=== PATIENT | male | born 1940 | race Caucasian/White ===

== ENCOUNTER 2018-03-05 18:10 | Inpatient (IN) | payer OTHER ==
[~2018-03-05] VITALS: Ht 177.8 cm; Wt 105.0 kg
[2018-03-05] MEDS ORDERED: KLOR-CON M2020 MEQ PO (18:14)
[2018-03-05] MEDS ORDERED: HYDRALAZINE HCL25 MG PO (18:15)
[2018-03-05] MEDS ORDERED: MIN2.5 PO (18:15)
[2018-03-05] MEDS ORDERED: METOPROLOL SUCC50 M2 PO (18:15)
[2018-03-05] MEDS ORDERED: FUROSEMIDE40 MG PO (18:15)
[2018-03-05] MEDS ORDERED: ZOLOFT100 MG PO (18:16)
[2018-03-05] MEDS ORDERED: APAP/HYDROCODON1 T13 PO (18:16)
[2018-03-05] MEDS ORDERED: COUMADIN2.5 MG PO (18:16)
[2018-03-05] MEDS ORDERED: METOLAZONE5 M1 PO (18:17)
[2018-03-05] MEDS ORDERED: GABAPENTIN600 M1 PO (18:17)
[2018-03-05] MEDS ORDERED: PREDNISONE20 MG PO (18:17)
[2018-03-05] MEDS ORDERED: ROPINIROLE2 M1 PO (18:17)
[2018-03-05] MEDS ORDERED: NATEGLINIDE120 M1 PO (18:18)
[2018-03-05] MEDS ORDERED: GLIMEPIRIDE2 M1 PO (18:18)
[2018-03-05] MEDS ORDERED: ALLOPURINOL100 MG PO (18:18)
[2018-03-05 19:42] LABS: ALBUMIN 3.9 g/dL (3.4-5.0); ALKALINE PHOSPHATASE 74 U/L (46-116); ALT/SGPT 56 U/L (16-63); AST/SGOT 56 U/L (15-37); BILIRUBIN TOTAL 0.89 mg/dL (0.20-1.00); CALCIUM 9.1 mg/dL (8.5-10.1); CARBON DIOXIDE 26.3 mmol/L (21-32); CHLORIDE SERUM 103 mmol/L (98-107); CREATININE SERUM 2.5 mg/dL (0.7-1.3); GLUCOSE SERUM 110 mg/dL (74-106); POTASSIUM SERUM 3.9 mmol/L (3.5-5.1); SODIUM SERUM 140 mmol/L (136-145); TOTAL PROTEIN, SERUM 7.2 g/dL (6.4-8.2)
[2018-03-05 19:44] LABS: PLATELET COUNT 229 x10^3mcL (130-400)
[2018-03-05 19:49] LABS: BASOPHIL % 0 % (0-2); RED CELL DISTRIBUTION WIDTH 21.4 % (11.5-14.5)
[2018-03-05 20:04] LABS: ovalocyte/elliptocyte 1+; rbc morphology (normal/abnorm) ABNORMAL (NORMAL)
[2018-03-05 22:29] LABS: CHOLESTEROL/HDL RATIO 2.6; MAGNESIUM 2.6 mg/dL (1.8-2.4); PHOSPHOROUS 3.7 mg/dL (2.5-4.9)
[2018-03-05 22:31] LABS: T3 TOTAL 0.48 ng/mL
[2018-03-05 22:35] LABS: FREE T4 0.8 ng/dL (0.76-1.46); FREE THYROXINE INDEX 1.7 ug/dL (1.4-4.5); T4(THYROXINE) 4.7 ug/dL (4.7-13.3)
[2018-03-05 23:20] VITALS: BP 139/72
[2018-03-05 23:47] LABS: UA SPECIFIC GRAVITY <=1.005 (1.005-1.035); microscopic required? YES; urine erythrocyte NEGATIVE (NEGATIVE)
[2018-03-06 00:05] LABS: AMPHETAMINE QUAL UR NONE DETECTED (NEG <=1000)
[2018-03-06 06:00] VITALS: BP 109/61
[2018-03-06 07:06] LABS: PLATELET COUNT 181 x10^3mcL (130-400); RED CELL DISTRIBUTION WIDTH 20.9 % (11.5-14.5)
[2018-03-06 07:07] LABS: rbc morphology (normal/abnorm) ABNORMAL (NORMAL)
[2018-03-06 08:16] LABS: CALCIUM 8.7 mg/dL (8.5-10.1); CARBON DIOXIDE 27.1 mmol/L (21-32); CHLORIDE SERUM 105 mmol/L (98-107); CREATININE SERUM 2.8 mg/dL (0.7-1.3); MAGNESIUM 2.5 mg/dL (1.8-2.4); POTASSIUM SERUM 3.9 mmol/L (3.5-5.1); SODIUM SERUM 142 mmol/L (136-145)
[2018-03-06 08:53] LABS: GLUCOSE SERUM 43 mg/dL (74-106)
[2018-03-06 09:27] VITALS: BP 97/65
[2018-03-06 10:37] LABS: BAND NEUTROPHIL 38 % (0-10); BASOPHIL 0 % (0-2); MONOCYTE 6 % (0-7); SEGMENTED NEUTROPHILS 53 % (37-75)
[2018-03-06 10:38] LABS: ovalocyte/elliptocyte 1+
[2018-03-06 12:52] VITALS: BP 99/57
[2018-03-06 17:23] VITALS: BP 96/66
[2018-03-06 21:08] VITALS: BP 125/68
[2018-03-07] VITALS (7 sets, daily range): BP systolic 127–146; BP diastolic 56–90
[2018-03-07 06:22] LABS: PLATELET COUNT 137 x10^3mcL (130-400)
[2018-03-07 06:53] LABS: CALCIUM 8.6 mg/dL (8.5-10.1); CARBON DIOXIDE 25.6 mmol/L (21-32); CHLORIDE SERUM 103 mmol/L (98-107); CREATININE SERUM 2.7 mg/dL (0.7-1.3); GLUCOSE SERUM 143 mg/dL (74-106); MAGNESIUM 2.5 mg/dL (1.8-2.4); PHOSPHOROUS 5.4 mg/dL (2.5-4.9); POTASSIUM SERUM 4.1 mmol/L (3.5-5.1); SODIUM SERUM 141 mmol/L (136-145)
[2018-03-07 07:00] LABS: BASOPHIL % 0 % (0-2)
[2018-03-07 07:03] LABS: ovalocyte/elliptocyte 1+; rbc morphology (normal/abnorm) ABNORMAL (NORMAL)
[2018-03-08 06:44] VITALS: BP 137/84
[2018-03-08 08:12] LABS: PLATELET COUNT 176 x10^3mcL (130-400)
[2018-03-08 08:18] LABS: BASOPHIL % 0 % (0-2); RED CELL DISTRIBUTION WIDTH 21.4 % (11.5-14.5)
[2018-03-08 08:19] LABS: rbc morphology (normal/abnorm) ABNORMAL (NORMAL)
[2018-03-08 08:23] LABS: CARBON DIOXIDE 27.7 mmol/L (21-32); CHLORIDE SERUM 103 mmol/L (98-107); CREATININE SERUM 2.4 mg/dL (0.7-1.3); GLUCOSE SERUM 75 mg/dL (74-106); MAGNESIUM 2.7 mg/dL (1.8-2.4); PHOSPHOROUS 5.7 mg/dL (2.5-4.9); POTASSIUM SERUM 4.1 mmol/L (3.5-5.1); SODIUM SERUM 140 mmol/L (136-145)
[2018-03-08 09:36] VITALS: BP 120/78
[2018-03-08 13:00] VITALS: BP 132/68
[2018-03-08 16:58] VITALS: BP 136/85
[2018-03-08 21:18] VITALS: BP 139/84
[2018-03-09 06:02] VITALS: BP 118/67
[2018-03-09 06:33] LABS: PLATELET COUNT 184 x10^3mcL (130-400)
[2018-03-09 06:50] LABS: CALCIUM 8.7 mg/dL (8.5-10.1); CHLORIDE SERUM 105 mmol/L (98-107); CREATININE SERUM 2.2 mg/dL (0.7-1.3); GLUCOSE SERUM 84 mg/dL (74-106); MAGNESIUM 2.9 mg/dL (1.8-2.4); PHOSPHOROUS 5.3 mg/dL (2.5-4.9); POTASSIUM SERUM 4.3 mmol/L (3.5-5.1); SODIUM SERUM 141 mmol/L (136-145)
[2018-03-09 06:55] LABS: BASOPHIL % 0 % (0-2); RED CELL DISTRIBUTION WIDTH 21.9 % (11.5-14.5)
[2018-03-09 07:23] VITALS: Ht 177.8 cm; Wt 105.0 kg
[2018-03-09 07:35] VITALS: BP 118/67
[2018-03-09 09:18] VITALS: BP 132/74
[2018-03-09 12:28] VITALS: BP 127/80
[2018-03-09 18:22] VITALS: BP 133/83
[2018-03-09 21:09] VITALS: BP 129/74
[2018-03-10 05:30] VITALS: BP 121/73
[2018-03-10 06:16] LABS: PLATELET COUNT 192 x10^3mcL (130-400)
[2018-03-10 06:26] LABS: CALCIUM 8.7 mg/dL (8.5-10.1); CARBON DIOXIDE 24.5 mmol/L (21-32); CHLORIDE SERUM 103 mmol/L (98-107); CREATININE SERUM 2.1 mg/dL (0.7-1.3); GLUCOSE SERUM 77 mg/dL (74-106); MAGNESIUM 2.8 mg/dL (1.8-2.4); PHOSPHOROUS 5.1 mg/dL (2.5-4.9); POTASSIUM SERUM 4.2 mmol/L (3.5-5.1); SODIUM SERUM 139 mmol/L (136-145); URIC ACID 4.8 mg/dL (3.5-7.2)
[2018-03-10 07:11] LABS: BASOPHIL % 0 % (0-2)
[2018-03-10 09:45] VITALS: BP 142/87
[2018-03-10 12:45] VITALS: BP 145/83
[2018-03-10 17:50] VITALS: BP 125/83
[2018-03-10 22:16] VITALS: BP 127/85
[2018-03-11 06:38] VITALS: BP 145/89
[2018-03-11 07:27] LABS: BASOPHIL % 0.3 % (0-2); PLATELET COUNT 194 x10^3mcL (130-400)
[2018-03-11 07:28] LABS: RED CELL DISTRIBUTION WIDTH 21.1 % (11.5-14.5)
[2018-03-11 07:29] LABS: rbc morphology (normal/abnorm) ABNORMAL (NORMAL)
[2018-03-11 09:00] VITALS: BP 136/84
[2018-03-11 10:22] LABS: CALCIUM 8.6 mg/dL (8.5-10.1); CARBON DIOXIDE 25.6 mmol/L (21-32); CHLORIDE SERUM 103 mmol/L (98-107); GLUCOSE SERUM 86 mg/dL (74-106); MAGNESIUM 2.7 mg/dL (1.8-2.4); POTASSIUM SERUM 4.4 mmol/L (3.5-5.1); SODIUM SERUM 140 mmol/L (136-145)
[2018-03-11 13:17] VITALS: BP 160/88
[2018-03-11] MEDS ORDERED: LAC PO (13:50)
[2018-03-11] MEDS ORDERED: NOVAPLUS LEVOF150 ML IV (13:50)
[2018-03-11 15:33] VITALS: BP 142/93
[2018-03-11 17:22] VITALS: BP 142/93
[2018-03-11 17:45] VITALS: BP 139/78
[2018-03-11] MEDS ORDERED: NORCO1 TA2 PO (21:24)
== END 2018-03-11 22:34 | DRG 871 ==
LOC: ED 18:10 → EDBD 18:10 → DU 21:54
PROVIDERS: Family Medicine; Family Medicine Sports Medicine
PROC: 5A09357 Assistance with Respiratory Ventilation, Less than 24 Consecutive Hours, Continuous Positive Airway Pressure (ICD-10-PCS; principal; 2018-03-06)
PROC: 5A09357 Assistance with Respiratory Ventilation, Less than 24 Consecutive Hours, Continuous Positive Airway Pressure (ICD-10-PCS; 2018-03-07)
DX: A41.9 Sepsis, unspecified organism (principal); N17.0 Acute kidney failure with tubular necrosis; J96.20 Acute and chronic respiratory failure, unspecified whether with hypoxia or hypercapnia; I50.43 Acute on chronic combined systolic (congestive) and diastolic (congestive) heart failure; L03.116 Cellulitis of left lower limb; N39.0 Urinary tract infection, site not specified; I13.0 Hypertensive heart and chronic kidney disease with heart failure and stage 1 through stage 4 chronic kidney disease, or unspecified chronic kidney disease; L03.115 Cellulitis of right lower limb; J44.1 Chronic obstructive pulmonary disease with (acute) exacerbation; E11.65 Type 2 diabetes mellitus with hyperglycemia; I48.2 Chronic atrial fibrillation; N18.3 Chronic kidney disease, stage 3 (moderate); E11.22 Type 2 diabetes mellitus with diabetic chronic kidney disease; E83.39 Other disorders of phosphorus metabolism; E66.01 Morbid (severe) obesity due to excess calories; E83.41 Hypermagnesemia; E11.42 Type 2 diabetes mellitus with diabetic polyneuropathy; I25.10 Atherosclerotic heart disease of native coronary artery without angina pectoris; Z68.33 Body mass index [BMI] 33.0-33.9, adult; Z87.891 Personal history of nicotine dependence; Z95.1 Presence of aortocoronary bypass graft
CPT/HCPCS: 82962; 83880; 84439; 94150; 97110-GP; 97530-GP; J1940; J1956; J2270; J2543; J3370; J3490; J7030; J7050; J7120; J7512; J7620; Q0092